=== PATIENT | male | born 1960 | race Caucasian/White ===

== ENCOUNTER 2020-06-19 15:56 | Observation (INO) ==
[2020-06-19 17:55] LABS: Basophils % 0.1 % (0.0-0.8); Eosinophils % 0.1 % (0.00-10.9); Hematocrit 43.4 VOL% (42.0-52.0); Hemoglobin 14.2 GM/DL (14.0-18.0); Immature Granulocytes % 0.7 %; Lymphocytes # 0.9 10*3/uL (1.4-4.0); Lymphocytes % 6.7 % (21.2-54.2); Mean Corpuscular HGB Conc 32.7 GM/DL (32-36); Mean Corpuscular Volume 89.5 FL (87-102); Mean Platelet Volume 11.7 FL (9.6-12.0); Monocytes % 4.9 % (1.7-12.7); Neutrophils % 87.5 % (38.7-73.9); Platelet Count 164 T/CUMM (130-400); Red Blood Count 4.85 MC/CUMM (3.8-5.5); Red Cell Distribution Width 12.9 % (9.3-17.3); White Blood Count 13.6 T/CUMM (4-12)
[2020-06-19 18:22] LABS: Albumin 3.8 G/DL (3.4-5.0); Bilirubin,Total 0.7 MG/DL (0.2-1.0); Calcium 9.2 MG/DL (8.5-10.1); Osmolality,Calculated 275.8 MOS/KG (273-304)
[2020-06-19] MEDS ORDERED: MORPHINE 4 MG/1 ML VIAL IV STA (18:39)
[2020-06-19] MEDS ORDERED: ONDANSETRON 4 MG/2 ML VIAL IV ONE (18:39)
[2020-06-19 18:52] LABS: Apearance,Urine CLEAR (Clear); Bilirubin,Urine Negative (Negative); Blood, Urine Negative (Negative); Glucose,Urine (UA) Negative (Negative); Ketones,Urine Negative (Negative); Mucus,Urine Occasional /LPF (Occasional); Nitrite,Urine Negative (Negative); Protein,Urine Negative; RBC,Urine 1 /HPF (0-4); Urine Color Yellow (Yellow); Urine Specific Gravity 1.025 (1.001-1.035); WBC,Urine 1 /HPF (0-6)
[2020-06-19] MEDS ORDERED: hydrALAZINE 20 MG/1 ML VIAL IV STA (19:09)
[2020-06-19] MEDS ORDERED: LABETALOL 20 MG/4 ML SYRINGE IV STA (21:04)
[2020-06-19] MEDS ORDERED: SODIUM CHLORIDE 0.9% 1,000 ML IV STA (21:12)
[2020-06-19] MEDS ORDERED: HYDROmorphone 2 MG/1 ML VIAL IV STA (21:56)
[2020-06-19] MEDS ORDERED: ALUM/MAG/SIMETH/LIDO VISC 1:1 30 ML BOTTLE PO STA (22:28)
[2020-06-19] MEDS ORDERED: hydrALAZINE 20 MG/1 ML VIAL IV PRN (23:08)
[2020-06-19] MEDS ORDERED: GLUCAGON 1 MG VIAL IM PRN (23:08)
[2020-06-19] MEDS ORDERED: MORPHINE 4 MG/1 ML VIAL IV PRN (23:08)
[2020-06-19] MEDS ORDERED: DEXTROSE 50% 25 GM/50 ML VIAL IV PRN (23:08)
[2020-06-19] MEDS ORDERED: ONDANSETRON 4 MG/2 ML VIAL IV PRN (23:08)
[2020-06-19] MEDS ORDERED: SODIUM CHLORIDE 0.9% 1,000 ML IV SCH (23:30)
[2020-06-20 08:14] LABS: Basophils % 0.1 % (0.0-0.8); Eosinophils # 0.1 10*3/uL (0.0-0.87); Eosinophils % 0.7 % (0.00-10.9); Hemoglobin 13.4 GM/DL (14.0-18.0); Immature Granulocytes % 0.7 %; Immature Granulocytes Absolute 0.08 #; Lymphocytes # 1.3 10*3/uL (1.4-4.0); Lymphocytes % 10.3 % (21.2-54.2); Mean Corpuscular HGB Conc 32.7 GM/DL (32-36); Mean Corpuscular Volume 90.5 FL (87-102); Mean Platelet Volume 11.3 FL (9.6-12.0); Monocytes % 8.7 % (1.7-12.7); Neutrophils % 79.5 % (38.7-73.9); Platelet Count 135 T/CUMM (130-400); Red Blood Count 4.53 MC/CUMM (3.8-5.5); Red Cell Distribution Width 13.1 % (9.3-17.3); White Blood Count 12.2 T/CUMM (4-12)
[2020-06-20 08:39] LABS: Albumin 3.3 G/DL (3.4-5.0); Bilirubin,Total 1.5 MG/DL (0.2-1.0); Calcium 9.2 MG/DL (8.5-10.1); Osmolality,Calculated 273.8 MOS/KG (273-304); Total Protein 7.4 G/DL (6.4-8.3)
[2020-06-20] MEDS ORDERED: MAGNESIUM OXIDE 400 MG TABLET PO SCH (09:00)
[2020-06-20] MEDS ORDERED: PANTOPRAZOLE 40 MG TABLET PO SCH (09:00)
[2020-06-20 09:14] LABS: Platelet Estimate Adequate
[2020-06-20 11:00] VITALS: BP 147/80
== END 2020-06-20 13:22 | disposition home or self-care (01) ==
LOC: N.ED 15:56 → N.EDINP 15:56 → N.3E 06-20 00:15
PROVIDERS: ADMIT Internal Medicine; ATTEND Internal Medicine

== ENCOUNTER 2021-10-10 10:01 | Inpatient (IN) ==
[2021-10-10] MEDS ORDERED: ALBUTEROL/IPRATROPIUM 3 ML NEB RESP TX PRN (14:09)
[2021-10-10] MEDS ORDERED: BISACODYL 5 MG TABLET PO PRN (14:09)
[2021-10-10] MEDS ORDERED: ACETAMINOPHEN 325 MG TABLET PO PRN (14:09)
[2021-10-10] MEDS ORDERED: ONDANSETRON 4 MG/2 ML VIAL IV PRN (14:09)
[2021-10-10 14:56] LABS: Basophils # 0.1 10*3/uL (0.0-0.2); Basophils % 0.7 % (0.0-0.8); Eosinophils # 0.4 10*3/uL (0.0-0.87); Hematocrit 47.1 VOL% (42.0-52.0); Hemoglobin 15.3 GM/DL (14.0-18.0); Immature Granulocytes % 1.4 %; Lymphocytes # 1.4 10*3/uL (1.4-4.0); Lymphocytes % 18.8 % (21.2-54.2); Mean Corpuscular HGB Conc 32.5 GM/DL (32-36); Mean Corpuscular Volume 90.1 FL (87-102); Mean Platelet Volume 11.7 FL (9.6-12.0); Monocytes % 9.2 % (1.7-12.7); Neutrophils % 64.9 % (38.7-73.9); Platelet Count 226 T/CUMM (130-400); Red Blood Count 5.23 MC/CUMM (3.8-5.5); Red Cell Distribution Width 13.5 % (9.3-17.3); White Blood Count 7.4 T/CUMM (4-12)
[2021-10-10] MEDS: LACTATED RINGERS 1,000 ML IV SCH (15:09)
[2021-10-10 15:12] LABS: Albumin 3.4 G/DL (3.4-5.0); Calcium 9.9 MG/DL (8.5-10.1); Osmolality,Calculated 275.7 MOS/KG (273-304); Potassium 3.9 MMOL/L (3.5-5.1)
[2021-10-10 15:13] LABS: INR 1.1; PT Patient Result 12.3 SECS (10.5-12.0); Partial Thromboplastin Time 30.5 SECS (23.8-32.1)
[2021-10-10 15:28] LABS: Bilirubin,Total 15.7 MG/DL (0.20-1.00)
[2021-10-10] MEDS: PIPERACILLIN/TAZOBACTAM 3,375 MG in SODIUM CHLORIDE 0.9% 100 ML IV SCH (16:59)
[2021-10-10 18:55] LABS: Basophils # 0.1 10*3/uL (0.0-0.2); Basophils % 0.7 % (0.0-0.8); Eosinophils # 0.4 10*3/uL (0.0-0.87); Eosinophils % 5.9 % (0.00-10.9); Hematocrit 43.5 VOL% (42.0-52.0); Hemoglobin 14.1 GM/DL (14.0-18.0); Immature Granulocytes % 1.2 %; Immature Granulocytes Absolute 0.08 #; Lymphocytes # 1.5 10*3/uL (1.4-4.0); Lymphocytes % 22.8 % (21.2-54.2); Mean Corpuscular HGB Conc 32.4 GM/DL (32-36); Mean Corpuscular Volume 90.1 FL (87-102); Mean Platelet Volume 10.9 FL (9.6-12.0); Monocytes % 9.2 % (1.7-12.7); Neutrophils % 60.2 % (38.7-73.9); Platelet Count 197 T/CUMM (130-400); Red Blood Count 4.83 MC/CUMM (3.8-5.5); Red Cell Distribution Width 13.5 % (9.3-17.3); White Blood Count 6.8 T/CUMM (4-12)
[2021-10-10 19:10] LABS: PT Patient Result 10.8 SECS (10.5-12.0)
[2021-10-11] MEDS: PIPERACILLIN/TAZOBACTAM 3,375 MG in SODIUM CHLORIDE 0.9% 100 ML IV SCH ×3 (02:07→17:11)
[2021-10-11] MEDS: PANTOPRAZOLE 40 MG TABLET PO SCH (06:16)
[2021-10-11] MEDS ORDERED: INDOMETHACIN SUPP 50 MG SUPP RECTAL ONE (08:18)
[2021-10-11] MEDS ORDERED: SUCCINYLCHOLINE 200 MG/10 ML VIAL ONE (09:45)
[2021-10-11] MEDS ORDERED: LIDOCAINE 2% 5 ML VIAL ONE (09:45)
[2021-10-11] MEDS ORDERED: propofoL 200 MG/20 ML VIAL IV ONE ×2 (09:45→09:49)
[2021-10-11] MEDS ORDERED: fentaNYL 100 MCG/2 ML VIAL ONE (09:45)
[2021-10-11] MEDS: LACTATED RINGERS 1,000 ML IV SCH ×5 (10:35→17:22)
[2021-10-11] MEDS ORDERED: ETOMIDATE 20 MG/10 ML VIAL IV ONE (11:32)
[2021-10-11] MEDS ORDERED: PHENYLEPHRINE 1 MG/10 ML SYRINGE IV ONE (12:06)
[2021-10-11] MEDS ORDERED: ePHEDrine 50 MG/ML VIAL ONE (12:06)
[2021-10-11] MEDS ORDERED: ONDANSETRON 4 MG/2 ML VIAL ONE (12:09)
[2021-10-11] MEDS ORDERED: SEVOFLURANE 1 UNIT/15 MINUTE INH ONE (12:12)
[2021-10-11] MEDS ORDERED: HYDROmorphone 2 MG/1 ML VIAL IV PRN (13:32)
[2021-10-11 15:00] LABS: Hepatitis B Core IgM Quant 0.13 Index; Hepatitis B Surface Ag Quant < 0.10 Index; Hepatitis B Surface Ag Result Non-Reactive (NonReactive); Hepatitis C Virus Ab Quant 0.07 Index; Hepatitis C Virus Ab Result Non-Reactive (NonReactive)
[2021-10-12] MEDS: PIPERACILLIN/TAZOBACTAM 3,375 MG in SODIUM CHLORIDE 0.9% 100 ML IV SCH ×3 (01:17→16:26)
[2021-10-12 06:03] LABS: Basophils % 0.8 % (0.0-0.8); Eosinophils # 0.4 10*3/uL (0.0-0.87); Eosinophils % 7.5 % (0.00-10.9); Hematocrit 45.1 VOL% (42.0-52.0); Hemoglobin 14.4 GM/DL (14.0-18.0); Immature Granulocytes % 1.4 %; Immature Granulocytes Absolute 0.07 #; Lymphocytes # 1.4 10*3/uL (1.4-4.0); Lymphocytes % 27.1 % (21.2-54.2); Mean Corpuscular HGB Conc 31.9 GM/DL (32-36); Mean Corpuscular Volume 92.4 FL (87-102); Mean Platelet Volume 11.6 FL (9.6-12.0); Monocytes % 9.4 % (1.7-12.7); Neutrophils % 53.8 % (38.7-73.9); Platelet Count 208 T/CUMM (130-400); Red Blood Count 4.88 MC/CUMM (3.8-5.5); Red Cell Distribution Width 13.7 % (9.3-17.3); White Blood Count 5.1 T/CUMM (4-12)
[2021-10-12] MEDS: PANTOPRAZOLE 40 MG TABLET PO SCH (06:18)
[2021-10-12 06:19] LABS: Albumin 3.1 G/DL (3.4-5.0); Calcium 9.3 MG/DL (8.5-10.1); Osmolality,Calculated 279.3 MOS/KG (273-304); Potassium 3.8 MMOL/L (3.5-5.1)
[2021-10-12 06:28] LABS: Bilirubin,Total 14.4 MG/DL (0.20-1.00)
[2021-10-12] MEDS: LACTATED RINGERS 1,000 ML IV SCH ×3 (09:06→18:22)
[2021-10-12] MEDS ORDERED: LIDOCAINE 1%/EPI INJ 20 ML VIAL ONE (10:41)
[2021-10-12] MEDS ORDERED: TISSUE ADHESIVE 1 EACH APPLICATOR TOP ONE (10:41)
[2021-10-12] MEDS ORDERED: BUPIVACAINE MPF 0.25% 30 ML VIAL ONE (10:41)
[2021-10-12] MEDS ORDERED: ROCURONIUM 50 MG/5 ML VIAL IV ONE (11:31)
[2021-10-12] MEDS ORDERED: LIDOCAINE 2% 5 ML VIAL ONE (11:31)
[2021-10-12] MEDS ORDERED: ONDANSETRON 4 MG/2 ML VIAL ONE (11:31)
[2021-10-12] MEDS ORDERED: propofoL 200 MG/20 ML VIAL IV ONE (11:31)
[2021-10-12] MEDS ORDERED: DEXAMETHASONE 4 MG/1 ML VIAL ONE (11:31)
[2021-10-12] MEDS ORDERED: MIDAZOLAM 2 MG/2 ML VIAL ONE (11:31)
[2021-10-12] MEDS ORDERED: fentaNYL 100 MCG/2 ML VIAL ONE (11:31)
[2021-10-12] MEDS ORDERED: ePHEDrine 50 MG/ML VIAL ONE (11:59)
[2021-10-12] MEDS ORDERED: HYDROmorphone 2 MG/1 ML VIAL ONE (12:20)
[2021-10-12] MEDS ORDERED: GLYCOPYRROLATE 0.4 MG/2 ML VIAL ONE (13:41)
[2021-10-12] MEDS ORDERED: NEOSTIGMINE 10 MG/10 ML VIAL ONE (13:41)
[2021-10-12] MEDS ORDERED: LACTATED RINGERS 1,000 ML IV ONE (13:46)
[2021-10-12] MEDS ORDERED: SODIUM CHLORIDE 0.9% 1,000 ML IV ONE (13:46)
[2021-10-12] MEDS ORDERED: HYDROmorphone 2 MG/1 ML VIAL IV PRN (14:02)
[2021-10-12] MEDS ORDERED: ONDANSETRON 4 MG/2 ML VIAL IV PRN (14:02)
[2021-10-12] MEDS: HYDROmorphone 2 MG/1 ML VIAL IV PRN (15:07)
[2021-10-13] MEDS: PIPERACILLIN/TAZOBACTAM 3,375 MG in SODIUM CHLORIDE 0.9% 100 ML IV SCH ×2 (00:47→08:27)
[2021-10-13] MEDS: LACTATED RINGERS 1,000 ML IV SCH (05:37)
[2021-10-13] MEDS: PANTOPRAZOLE 40 MG TABLET PO SCH (05:37)
[2021-10-13 06:52] LABS: Albumin 2.5 G/DL (3.4-5.0); Bilirubin,Total 11.2 MG/DL (0.20-1.00); Calcium 8.9 MG/DL (8.5-10.1); Osmolality,Calculated 277.4 MOS/KG (273-304); Potassium 4.4 MMOL/L (3.5-5.1); Total Protein 6.2 G/DL (6.4-8.2)
[2021-10-13] MEDS: HYDROmorphone 2 MG/1 ML VIAL IV PRN (11:40)
[2021-10-13 11:47] VITALS: BP 150/92
== END 2021-10-13 14:52 | disposition home or self-care (01) | DRG 419 ==
LOC: N.ADMINP 13:02 → N.5E 13:31
PROVIDERS: ADMIT Surgery; ATTEND Surgery
PROC: ERCPWSP (ICD-10-PCS; 2021-10-11 11:05)
PROC: LAPCHOL (2021-10-12 11:43)